=== PATIENT | male | born 1995 | race Caucasian/White ===

== ENCOUNTER 2021-03-01 14:57 | Emergency (ER) | payer OTHER, SELFPAY ==
[2021-03-01 14:57] VITALS: BP 145/77; PULSE 72; RESP 14; TEMP 36.4; O2SAT 99; BMI 37.3
--- NOTE | 2021-03-01 15:11 | EX.ED.UPPERE ---
HPI History of Present Illness Chief Complaint: Upper Extremity Injury Informant: patient Onset/Context/Timing Onset: Yesterday Quality of Pain: - (sore) Location: left axilla Current Severity: Mild Maximum Severity: Mild Worsened by: palpation Relieved by: leaving alone Associated Symptoms Associated Symptoms: Negative for Parasthesia, Weakness and Loss of Funtion Narrative Narrative: noticed sore yesterday w/ small amt of bloody discharge from a hole in my armpit. PFSH PFSH Home Medications cephalexin 500 mg PO Q6 #28 capsule 03/01/21 [Rx Last Taken Unknown] Allergy/AdvReac Type Severity Reaction Status Date / Time No Known Allergies Allergy Verified 03/01/21 14:59 Social History Smoking Status: Never smoker ROS ROS ED Constitutional Constitutional ED: Denies chills or fever(s) Musculoskeletal Musculoskeletal: Reports extremity pain; Denies neck pain Integumentary Reports as per HPI and wounds; Denies Abrasions or rash Neurologic Neurologic: Denies paresthesias or weakness EXAM Physical Exam Const Vital Signs: 03/01/21 14:57 Temperature 97.6 F L Temperature Source Temporal Pulse Rate 72 Respiratory Rate 14 Blood Pressure 145/77 H Blood Pressure Mean 99 Pulse Ox 99 Oxygen Delivery Method Room Air Positive well nourished and well developed General Appearance ED: well developed and NAD Neck full ROM and supple Lymph Lymphatic: no lymphadenopathy noted Back/Spine normal ROM and normal to inspection Extremity Extremity Narrative: mild ttp left axilla at skin lesion/break, see below. Neuro oriented x3, no focal motor deficits and no sensory deficits noted Sensorium / Orientation: alert Psych mental status grossly normal and thought process normal Skin Skin Narrative: small superficial hole/break in skin w/ small amount of erythema around it more anteriorly, all within left axilla. no abscess. no purulent d/c, scant amt serosang d/c expressible only. Rashes: no rashes MDM MDM MDM Narrative Medical decision making narrative: This resembles a small abscess that ruptured and already drained, but the patient affirms that he did not have anything there before he noticed this small open area. We will put him on cephalexin, it is a very small pinpoint sized hole, there are 2 right next to each other that are contiguous, and a very slight amount of erythema around it and it is barely tender. If he gets worse while on antibiotics he is encouraged to seek repeat evaluation. Also discussed dressings, which we placed. Discharge Plan Triage Chief Complaint: Upper Extremity Injury ED Provider: Des Vieyra Dx/Rx/DC Orders Clinical Impression: Cellulitis of axilla, left Instructions: ED Cellulitis Prescriptions: New cephalexin 500 mg capsule 500 mg PO Q6 Qty: 28 RF: 0 Primary Care Provider: Care Physician,No Primary Referrals: Birgit Stallings MD [STAFF PHYSICIAN] - 3-5 Days if not improving Disposition Disposition: Home, self care Discharge Date/Time: 03/01/21 15:49
== END 2021-03-01 15:49 | disposition home or self-care (01) ==
PROVIDERS: Emergency Provider Emergency Medicine
DX: L03.112 Cellulitis of left axilla (principal)
CPT/HCPCS: 99282